=== PATIENT | female | born 1980 | race Caucasian/White ===

== ENCOUNTER 2017-04-08 21:21 | Emergency (ER) | payer OTHER ==
[~2017-04-08] VITALS: Ht 160 cm; Wt 75.0 kg
[2017-04-08] MEDS ORDERED: IBUPROFEN 800MG TABLET PO ONE (23:45)
[2017-04-08] MEDS ORDERED: LORAZEPAM 1MG TABLET PO ONE (23:45)
[2017-04-09 01:57] VITALS: BP 123/70
== END 2017-04-09 02:00 | disposition home or self-care (01) ==
LOC: ER 21:28
DX: S16.1XXA Strain of muscle, fascia and tendon at neck level, initial encounter (principal); S39.012A Strain of muscle, fascia and tendon of lower back, initial encounter; G43.909 Migraine, unspecified, not intractable, without status migrainosus; V43.52XA Car driver injured in collision with other type car in traffic accident, initial encounter; Y93.89 Activity, other specified; Y92.488 Other paved roadways as the place of occurrence of the external cause
CPT/HCPCS: 72040; 72100; 81025; 99284; Z7610